=== PATIENT | female | born 1970 | race Caucasian/White ===

== ENCOUNTER 2019-04-19 10:42 | Outpatient (CLI) | payer BC, SELFPAY ==
--- NOTE | 2019-04-19 10:40 | DI.RAD_ITS ---
SYMPTOMS/DIAGNOSIS: KNEE PAIN RIGHT KNEE: Three views were obtained. There may be slight lateral patellar subluxation. There is an apparent accessory ossicle at the lateral aspect of the patella. Minimal marginal osteophyte formation noted at the medial tibiofemoral joint. No other significant bony abnormality seen.
== END 2019-04-19 11:02 ==
PROVIDERS: PCP Family Medicine; Visit Provider Student in an Organized Health Care Education/Training Program
DX: M25.561 Pain in right knee (principal); S89.91XA Unspecified injury of right lower leg, initial encounter
CPT/HCPCS: 73560

== ENCOUNTER 2019-04-26 00:52 | Outpatient (CLI) | payer BC, SELFPAY ==
--- NOTE | 2019-04-26 08:01 | DI.MRI_ITS ---
SYMPTOM/DIAGNOSIS: RT PATELLA OSTEOPHYTE/FX, M22.92, DISORDER OF PATELLA RIGHT KNEE MRI: Axial T 2 fat sat, coronal proton density, coronal T 2 fat sat, sagittal T 2 fat sat, sagittal proton density and sagittal proton density thin ACL pulse sequences were performed. The extensor mechanism of the knee is intact. A small joint effusion is demonstrated. There is no evidence of a meniscal or cruciate tear. The patella appears intact with note made of a small lateral patellar ossicle. There is nothing to suggest a fracture. The patellar cartilage is intact. The medial and lateral patellar retinaculum and medial and lateral collateral ligaments of the knee appear intact. SUMMARY: Question small joint effusion. No evidence of an internal derangement. No evidence of a patellar fracture.
== END 2019-04-26 01:12 ==
PROVIDERS: PCP Family Medicine; Visit Provider Student in an Organized Health Care Education/Training Program
DX: M22.91 Unspecified disorder of patella, right knee (principal); M25.461 Effusion, right knee
CPT/HCPCS: 73721

== ENCOUNTER 2019-05-16 08:26 | Day surgery (SDC) | payer BC, SELFPAY ==
[2019-05-16 08:52] VITALS: BP 113/70; PULSE 70; RESP 16; TEMP 36.3; O2SAT 100
[2019-05-16] MEDS: Lactated Ringers 1,000 ML 80 ML IV (09:17)
[2019-05-16] MEDS: ceFAZolin 2 GM/50 ML BAG IVPB (09:43)
[2019-05-16] MEDS: Bupivacaine LIPOSOME/PF 133 MG/10 ML VIAL IJ (10:09)
[2019-05-16] MEDS: Bupivacaine 0.5% Pres-Free 30 ML VIAL (10:09)
[2019-05-16 10:24] VITALS: BP 112/78; PULSE 74; RESP 14; TEMP 36.6; O2SAT 97
[2019-05-16 10:29] VITALS: BP 129/82; PULSE 71; RESP 15; TEMP 36.6; O2SAT 100
--- NOTE | 2019-05-16 10:29 | W.PM.DSUDISC ---
Discharge Plan Disposition Patient Disposition: HOME Condition: Good Discharge Details Reason For Visit: R Patella Avulsion Fracture Attending Provider: Rajeev Ji Primary Care Provider: Fátima Srivastava Home Meds and New Rx's Prescriptions: New hydrocodone-acetaminophen 5-325 mg tablet 1 tab PO Q4H PRN (Reason: pain) Qty: 8 RF: 0 acetaminophen 500 mg tablet 500 mg PO Q6H PRN PRN (Reason: pain) Qty: 60 RF: 3 ibuprofen 600 mg tablet 600 mg PO TID PRNQty: 60 RF: 3 Discharge Instructions Additional Instructions: Activity: You may begin moving as soon as possible. You may work on flexion but do NOT force it nor try to squat or kneel. You may bear weight as tolerated, using crutches only for support/comfort. You should apply ice (CryoCuff) to help with swelling and elevate when possible (especially in the first few days). Dressings: The knee wrap may come down after 48 hours. You may shower and get the wound wet at that time. The surgical dressing may stay in place for at least one week but just avoid getting the dressing soaked. No dressing needed after 1 week. Medications: - Rarely does this require any stronger pain medications. - Recommend to take up to 1000mg of Acetaminophen (Tylenol) and 600mg of Ibuprofen (Advil) every 8 hours as needed. - Hydrocodone was called in for breakthrough pain Follow-up: 7-10 days Referrals: Rajeev Ji MD [ [facility] STAFF PHYSICIAN] - Equipment/Supplies: Partial Weight Bearing Crutches Activity:: Elevate Remove Dressings/Wound Care:: 48 hours Shower/Bathe:: 48 hours Diet:: As Tolerated Discharge Orders Discharge Orders: Discharge Order (Routine); Ordered 05/16/19 Ordered By: Rajeev Ji DS: Diagnosis Discharge Diagnosis (1) Disorder of right patella: Status: Acute
[2019-05-16 10:34] VITALS: BP 118/95; PULSE 68; RESP 14; TEMP 36.6; O2SAT 100
[2019-05-16 10:50] VITALS: BP 132/77; PULSE 74; RESP 18; TEMP 36.6; O2SAT 100
[2019-05-16 11:31] VITALS: BP 110/78; PULSE 67; RESP 16; TEMP 36.2; O2SAT 97
--- NOTE | 2019-05-16 21:47 | ROE_ITS ---
Date of service: 05/16/19 Time of Service: 12:47 Operative Note DATE OF PROCEDURE: 05/16/19 PRE-OP DIAGNOSIS: Right patella avulsion fracture POST-OP DIAGNOSIS: same PROCEDURE: Excision of patellar fracture fragment, right knee SURGEON: Rajeev Ji ANESTHESIA: GETA ESTIMATED BLOOD LOSS: 5 PATHOLOGY: none sent COMPLICATIONS: None Patient was transported to: PACU Patient's condition: stable Indications: Margie is a 48-year-old who suffered a direct blow to the right knee. Her initial pain improved to the point. However, she continued to have pain with direct pressure over the superior lateral aspect of the patella and with kneeling, squatting, and loaded flexion. X-ray showed a ossicle or bony avulsion from the superolateral patella. MRI revealed that this was hyperintense on T2 suggesting actively moving or being irritated. Given these findings and her clinical examination I offered excision of this loose fragment with repair of the lateral retinaculum. I discussed the risk of the procedure to include bleeding, infection, pain, stiffness, recurrence, weakness. Despite these risks, she elected to proceed. Findings: Immediately adjacent to the superior lateral aspect patella was a bony fragment which was loose and mobile embedded in the soft tissue of the lateral retinaculum in the very distal aspect of the vastus lateralis. It was removed and the lateral soft tissues were repaired Procedure Description: Margie was greeted in the preoperative holding area. Her identity was confirmed the correct site was identified and marked. The consent was reviewed with the patient and signed. The history and physical was updated. Margie was taken back to the operating room placed in the supine position. All bony problems well-padded. A general anesthetic was administered. The right leg was then prepped with ChloraPrep and draped in a standard fashion. Prophylactic antibiotics in the form of cefazolin were given. A timeout was performed for safe surgery. The bony prominence was marked on the skin prior to entering the operating room. An incision centered over this but slightly more midline was drawn onto the skin. The skin, deep tissues, and periosteum were injected with a mixture of 0.5% bupivacaine and Exparel. The skin was incised sharply. This was taken down to the skin and subcutaneous fat. The prepatellar bursa was encountered and this plane was used for dissection. There is no notable bursitis. The extensor mechanism was evaluated in the dorsal surface of the patella was seen. The prominence was palpable. There was no defect seen in the soft tissues. A small incision was made off the lateral border of the patella into the retinacul um. This was extended proximally distally until the prominence was encountered. There was a spicule which was more attached to the patella. Using a [place], I was able to probe this area and just proximal to it there was a loose piece of bone which was mobile. The spicule was removed with a running drawer. The loose piece was also dissected out of the lateral soft tissues. It appeared to be attached to lateral retinaculum as well as the very distal aspect the vastus lateralis. This was removed, measuring approximately 5 mm in length and 3 mm in width and depth. This wound was then thoroughly irrigated. There is no apparent joint violation. The distal fibers of the vastus lateralis and the lateral retinaculum were closed with a #1 suture. The wound was thoroughly irrigated. The deep structures were once again injected with a mixture of 0.5% bupivacaine and Exparel. The skin was then closed with a 2-0 Vicryl followed by 4-0 Monocryl and skin glue. A Mepilex silver dressing was applied and she was placed into an Kem wrap. The tourniquet was not used for the case. The be tolerated the procedure well.
== END 2019-05-16 12:42 | disposition home or self-care (01) ==
PROVIDERS: PCP Nurse Practitioner; Visit Provider Student in an Organized Health Care Education/Training Program
PROC: (CPT 20525; principal; 2019-05-16 08:15)
DX: S82.091A Other fracture of right patella, initial encounter for closed fracture (principal); W22.8XXA Striking against or struck by other objects, initial encounter; M76.891 Other specified enthesopathies of right lower limb, excluding foot; M25.561 Pain in right knee
CPT/HCPCS: 20525; 81025; E0114; J0690; J1100; J1885; J2405

== ENCOUNTER 2020-07-16 11:03 | Outpatient (CLI) | payer SELFPAY ==
--- NOTE | 2020-07-16 | DI.US_ITS ---
EXAM: US SOFT TISS ABD WALL/LOW BACK CLINICAL HISTORY: CYST VS LIPOMA VS OTHER, L72.9. TECHNIQUE: Ultrasound was performed using standard protocol. COMPARISON: No exams were available for comparison FINDINGS: Sonographic assessment utilizing grayscale and color Doppler imaging was performed and targeted to th e area of clinical concern. There is a 3.4 x 1.9 x 0.7 cm solid mass in the subcutaneous tissues of the right lower back. This c orresponds to the palpable abnormality. It is isoechoic to the surrounding fat. IMPRESSION: 3.4 x 1.9 x 0.9 cm solid mass in the right lower back corresponding to the palpable abnormality. It is isoechoic to the surrounding fat. 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 Other soft tissue masses cannot be excluded. DATA REPOSITORY:
== END 2020-07-16 11:23 ==
PROVIDERS: PCP Nurse Practitioner; Visit Provider Nurse Practitioner
DX: R22.2 Localized swelling, mass and lump, trunk (principal)
CPT/HCPCS: 76705

== ENCOUNTER 2021-04-09 18:23 | Outpatient (CLI) | payer BC, SELFPAY ==
--- NOTE | 2021-04-09 09:30 | DI.RAD_ITS ---
Exam(s) XR HIP RT AP LAT ONLY EXAM: XR HIP RT AP LAT ONLY CLINICAL HISTORY: Right hip and buttock pain, tendinitis involving rt hip abductors, M76.891. TECHNIQUE: 2D digital imaging was performed. COMPARISON: No exams were available for comparison FINDINGS: There is no evidence of fracture or dislocation. No abnormal soft tissue calcifications. No obvious degenerative changes in the right hip joint. Bone density is normal. IMPRESSION: No significant radiographic findings. DATA REPOSITORY: RADIATION DOSE DELIVERED:
== END 2021-04-09 18:43 ==
PROVIDERS: PCP Nurse Practitioner; Visit Provider Student in an Organized Health Care Education/Training Program
DX: M76.9 Unspecified enthesopathy, lower limb, excluding foot (principal); M79.10 Myalgia, unspecified site
CPT/HCPCS: 73502

== ENCOUNTER 2021-04-18 04:22 | Outpatient (CLI) | payer BC, SELFPAY ==
--- NOTE | 2021-04-18 07:15 | DI.MRI_ITS ---
Exam(s) MR LOWER JOINT RT WO EXAM: MR LOWER JOINT RT WO CLINICAL HISTORY: R hip pain/weakness, ?abductor tear,TENDINITIS RT HIP ABDUCTORS,M76.891. TECHNIQUE: Multiplanar multisequence MRI Examination was performed. CONTRAST MATERIAL: Noncontrast COMPARISON: Plain films 09 April 2021 FINDINGS: BONES/JOINTS: No evidence of fracture. No evidence of bone lesion. No joint space narrowing identifie d. No joint effusion identified. Facet joint degenerative changes greater on the left at L4-5, see c ausing some neural foraminal encroachment as well as central canal encroachment. This is not fully i ncluded on the exam. LIGAMENTS: The medial and lateral collateral ligaments are intact. MUSCULOTENDINOUS STRUCTURES: Normal muscle signal. Questionable edema in the right gluteus medius te ndon of the is appears roughly symmetric with the opposite side.. SOFT TISSUES: Unremarkable. OTHER FINDINGS: Enlarged, retroverted uterus with right-sided fibroid measuring 3.4 cm. Heterogeneou s myometrium. Endometrium homogeneous. Ovaries unremarkable. Bladder appears normal. IMPRESSION: Question right gluteus medius tendinitis. DATA REPOSITORY:
== END 2021-04-18 04:42 ==
PROVIDERS: PCP Nurse Practitioner; Visit Provider Student in an Organized Health Care Education/Training Program
DX: M76.891 Other specified enthesopathies of right lower limb, excluding foot (principal); R53.1 Weakness
CPT/HCPCS: 73721

== ENCOUNTER 2021-05-15 15:41 | Outpatient (REF) | payer BC, SELFPAY ==
--- NOTE | 2021-05-15 15:15 | PAPFT_PTH ---
PATIENT: Margie Rodriguez LOC: [facility] U#:[id number] AGE/SX: 50/F ROOM: RE05/15/[address]: Nina Osei MD : 1970 BED: DIS: 05/15/2021 SPEC #: [id number] RECD: 05/15/21 18:25 STATUS: OSMIN REMiguel Angel #: [id number] CELESTINO: 05/15/21 15:[address]: Nina Osei DEPT: [facility] Cytology RECD BY: Grace Fuller ENTERED: 05/15/21 18:25 SP TYPE: PAPFT OTHR DR: Jaye Ayala Tissues: 1 - CX/ENDOCX FOR PAP SMEARS Procedures: PAP THIN PREP/UVM Screening HPV DNA PROBE Comments: [id number]
== END 2021-05-15 15:42 | disposition home or self-care (01) ==
LOC: LBN 15:41
PROVIDERS: PCP Nurse Practitioner; Visit Provider Obstetrics & Gynecology
DX: Z12.4 Encounter for screening for malignant neoplasm of cervix (principal); Z11.51 Encounter for screening for human papillomavirus (HPV)
CPT/HCPCS: 88142; 87624

== ENCOUNTER 2021-10-13 01:08 | Outpatient (CLI) | payer BC, SELFPAY ==
--- NOTE | 2021-10-13 | DI.MRI_ITS ---
Exam(s) MR LUMBAR SPINE WO EXAM: MR LUMBAR SPINE WO CLINICAL HISTORY: WORSENING BACK PAIN, M54.9. TECHNIQUE: Multiplanar multisequence MRI of the Lumbar spine was performed. COMPARISON: CR XR HIP RT AP LAT ONLY from 04/09/2021 FINDINGS: Bones: The last intervertebral disc space is designated the L5/S1 level for the numbering purpose of this examination. The vertebral body heights are well maintained. Alignment is satisfactory. The ma rrow signal characteristics are unremarkable. Cord: The conus tip ends at the T12 level. It is of normal size and signal intensity. T12-L1: No disc herniations or bulges are present. No central spinal canal or neural foraminal stenos is. L1-2: No disc herniations or bulges are present. No central spinal canal or neural foraminal stenosis . L2-3: No disc herniations or bulges are present. No central spinal canal or neural foraminal stenosis . L3-4: No disc herniations or bulges are present. No central spinal canal or neural foraminal stenosis . L4-5: No disc herniations or bulges are present. Facet degenerative changes and ligamentous hypertro phy. Small right-sided facet joint cysts project into the central canal. The findings cause moderat e central canal stenosis. Mild right neural foraminal narrowing. L5-S1: Mild bulging of the disc. Mild facet degenerative changes. No central spinal canal or neural foraminal stenosis. Soft tissues: The visualized SI joints and sacrum are well maintained. The paraspinal soft tissues ar e unremarkable. IMPRESSION: Moderate central canal stenosis at L4-5 secondary to combination of facet degenerative changes, ligam entous hypertrophy and small right-sided facet joint cysts. No disc herniation. DATA REPOSITORY:
== END 2021-10-13 01:28 ==
PROVIDERS: PCP Nurse Practitioner; Visit Provider Nurse Practitioner
DX: M54.9 Dorsalgia, unspecified (principal); M48.062 Spinal stenosis, lumbar region with neurogenic claudication
CPT/HCPCS: 72148

== ENCOUNTER 2022-05-06 13:20 | Outpatient (CLI) | payer BC, SELFPAY ==
--- NOTE | 2022-05-06 06:00 | DI.RAD_ITS ---
Exam(s) XR PAIN CLINIC SACRIOILIAC 2V EXAM: XR PAIN CLINIC SACRIOILIAC 2V CLINICAL HISTORY: Dx: Sacroiliac Joint Dysfunction TECHNIQUE: 2D and realtime digital imaging was performed. Radiologist not present. CONTRAST MATERIAL: None. COMPARISON: No exams were available for comparison FINDINGS: Fluoroscopy was provided for pain management therapy. Please refer to procedure report or details. Cumulative dose: Ka,r=3.83 mGy IMPRESSION: RADIATION DOSE DELIVERED:
[2022-05-06 13:24] VITALS: BP 112/80; PULSE 93; RESP 20; TEMP 36.7; O2SAT 95
[2022-05-06 13:53] VITALS: BP 114/72; PULSE 70; RESP 20; O2SAT 95
[2022-05-06 13:56] VITALS: BP 119/72; PULSE 67; O2SAT 97
[2022-05-06] MEDS: Omnipaque 240 MG/ML 50 ML BTL IJ (14:03)
[2022-05-06] MEDS: methylPREDNISolone ACETATE 80 MG/ML VIAL IJ (14:03)
[2022-05-06 14:05] VITALS: BP 127/82; PULSE 78; O2SAT 100
--- NOTE | 2022-05-06 14:42 | PDOC.PAIN_ITS ---
Pain Clinic Procedure Note Procedure Note Procedure Note: INTRA-ARTICULAR SI JOINT INJECTION Margie Rodriguez has been referred to the [facility] Management [facility] for intra-articular SI joint injection. COMMENTS: She was evaluated by [facility] and referred here for this procedure. She has pain directly over the right sacroiliac joint and has had this for 5 years since having a fall on this area. Dx: Right sacroiliac joint dysfunction Pre-procedure pain VAS = 3/10. Patient was interviewed and the medical record reviewed. There were no medical, pharmacologic, radiographic or other structural contraindications to attempting fluoroscopically guided intra-articular SI joint injection. Risks and expected side effects as well as potential benefit of the procedure were reviewed and voiced concerns addressed. The printed consent form was signed and witnessed. Standard time-out procedure was performed. Patient was placed in the prone position on the fluoroscopy table and automated blood pressure cuff and pulse oximeter applied. The skin entry point for approaching the right SI joint was identified under the most advantageous fluoroscopic view and marked. Following thorough Chlorhexadine preparation of the skin and draping and 1% lidocaine infiltration of the skin entry point and subcutaneous tissues, a 22 gauge spinal needle was placed under fluoroscopic guidance into the right SI joint was identified under the most advantageous fluoroscopic view and marked. Intra-articular placement was confirmed by a clear arthrogram resulting from the injection of 0.25ml Omnipaque 240, 1ml 1% lidocaine, and 40mg Depomedrol were injected intra-articularily with an initial reproduction of a significant component of the usual pain. Vital signs were stable throughout the procedure and were as recorded in the docflowsheet by the nursing staff. If given, dosages of intravenous drugs for anxiolysis and analgesia were documented in MAR. Follow up plans and appointments were discussed with the patient. Post procedure instruction was given as documented in nursing documentation and having met discharge criteria, and was discharged from the Pain Management Center. COMMENTS: Post-procedure pain VAS = 0/10 Nik Castillo DO, MPH [facility]-Pain Management [facility] for [facility] CC: Corbin Dupont
== END 2022-05-06 13:21 | disposition home or self-care (01) ==
PROVIDERS: PCP Physician Assistant; Visit Provider Preventive Medicine Occupational Medicine
DX: M54.50 Low back pain, unspecified (principal); M53.3 Sacrococcygeal disorders, not elsewhere classified
CPT/HCPCS: 27096; 72200; J1040; Q9967

== ENCOUNTER → 2023-08-05 00:13 | Outpatient (CLI) | payer BC, SELFPAY ==
--- NOTE | 2023-08-05 | DI.MAMMO_ITS ---
Exam(s) MAMMO SCREENING EXAM: MAMMO SCREENING CLINICAL HISTORY: SCREENING FOR BREAST CANCER Z12.39 TECHNIQUE: Bilateral full field digital CC and MLO mammographic images were obtained with 3D tomosyn thesis and utilizing computer aided detection (CAD). COMPARISON: Available for comparison. FINDINGS: Masses/Architectural Distortion: None seen. Microcalcifications: No suspicious pleomorphic-type are seen. Skin Thickening/Nipple Retraction: None. IMPRESSION: 1. No significant interval change with no specific features of malignancy noted. 2. Unless there is more urgent need, screening mammography is recommended, as per [employer] guidelines. BI-RADS Category 1 - Negative Breast Density - Category B - Scattered areas of fibroglandular density Breast density category C or D implies that the patient has dense breast tissue. Dense breast tissue is very common and is not abnormal but dense breast tissue can make it harder to find cancer on a ma mmogram. Also, dense breast tissue may increase their breast cancer risk. This information about the result of the mammogram report was provided to the patient to raise their awareness. Use this report when you speak with the patient about their risks for breast cancer, which includes their family hist ory. At that time, you may recommend for more screening tests (Ultrasound or MRI) as they might be us eful based on their risk. A negative radiographic report should not delay biopsy if a dominant or clinically suspicious mass is present. Up to ten percent of cancers are not identified on mammography. A negative report may reinforce clinical impression. Adenosis and dense breasts may obscure an underlying neoplasm. False positive reports average 6 to 10%. Patient will receive a letter notifying them of these results.
== END ==
PROVIDERS: PCP Physician Assistant; Visit Provider Physician Assistant
DX: Z12.31 Encounter for screening mammogram for malignant neoplasm of breast (principal)
CPT/HCPCS: 77063; 77067

== ENCOUNTER 2023-10-22 08:08 | Day surgery (SDC) | payer BC, SELFPAY ==
--- NOTE | 2023-10-21 16:20 | PDOC.DSDIS_ITS ---
Date of service: 10/22/23 Time of Service: 09:59 Discharge Plan Disposition Patient Disposition: Home Condition: Good Discharge Details Reason For Visit: Colon cancer screening Attending Provider: Cherry Rogers Primary Care Provider: Corbin Dupont Home Meds and New Rx's Prescriptions: Continued ibuprofen 200 mg Tablet 400 mg PO PRN PRN Zyrtec 10 mg capsule 10 mg PO DAILY PRN Discontinued bisacodyl [Dulcolax (bisacodyl)] 5 mg tablet,delayed release (DR/EC) 5 mg PO ONCE Qty: 4 0RF Rx Instructions: Colonoscopy Bowel Prep- Per Instructions polyethylene glycol 3350 17 gram/dose powder 238 g PO ONCE Qty: 238 0RF Rx Instructions: Colonoscopy Bowel Prep- Per Instructions Discharge Instructions Additional Instructions: DSU Colonoscopy Post- Op Instructions Instructions for Everyone who is given Anesthesia: For your safety, please do the following for the next twenty-four (24) hours: *Do Not operate a motor vehicle (car, truck, motorcycle, etc.) *Do Not drink alcoholic beverages or use any recreational drugs for the first 24 hours or while taking pain medications. The medications in your body may have a reaction that can be dangerous. *Do Not make any important decisions or sign any important papers. Findings: diverticula-make sure you are moving your bowels on a regular basis and not straining. If you have problems with chronic constipation or straining it is recommended you start a fiber product such as Metamucil. Follow up: 10 yrs time Of course, you should continue to have a yearly physical exam including a rectal exam. If you should ever notice any pain or difficulty having a bowel movement, blood in the stool, unexplained weight loss, or change in your bowel habits, please contact your healthcare provider 1. No lifting over 20 pounds or strenuous activity for the first 24 hours after your procedure. After 24 hours there are no restrictions on your activity but you may feel fatigued for a few days. 2. After you arrive home you may have a light meal and return to your normal diet as you can tolerate it without feeling sick to your stomach. 3. You may have a bloated, gaseous feeling in your belly (abdomen) after a colonoscopy. Passing gas and belching will help. Walking or lying down on your left side with your knees flexed may relieve the discomfort. Call the office at [phone] (Office) or [phone] (Hospital) right away if you notice any of the following: a.Vomiting of blood or ?coffee ground stools?. b.Rectal bleeding 1Tbsp, blood clots or continuous bleeding. c.Severe belly (abdominal) pain. d.A hard distended belly (abdomen) and an inability to pass gas. 4. Please don?t expect to have a normal BM (bowel movement) for 2-3 days after your procedure. 5. If there are questions regarding the findings of your procedure, please contact your doctor 6. If you are unable to contact your doctor with a problem, contact the hospital at [phone]. 7. Continue all your regular medications unless directed otherwise. I understand the above instructions and have no questions. Signature of Patient or Adult Escort Name of Responsible Adult Escort Signature of Nurse Date/Time Activity:: See above Diet:: See above Discharge Orders Discharge Orders: Discharge Order (Routine); Ordered 10/22/23 Ordered By: Cherry Rogers DS: Diagnosis Discharge Diagnosis (1) Screening for malignant neoplasm of colon performed: Status: Acute Asessment and Plan: The patient is seen and examined after their colonoscopy.? The patient has been able to pass gas.? They are not having abdominal pain.? They have been able to tolerate liquids and a snack.? They do not have any nausea or vomiting.? They are not having any chest pain or shortness of breath.??? They are not having any rectal bleeding. Their vital signs have been stable-see nursing notes. We discussed findings during their colonoscopy, and any biopsies that were done/polyps that were removed. The patient will be sent a letter with any biopsy results, and when to repeat the colonoscopy.-see discharge instructions. Patient was given explicit instructions to follow-up regarding colonoscopy-refer to discharge instructions.? We reviewed resumption of medications.Patient verbalized understanding and discharged in stable and satisfactory condition- See nursing notes (2) Diverticula of colon: Status: Acute
--- NOTE | 2023-10-21 16:20 | W.COLOREPORT ---
Date of service: 10/22/23 Time of Service: 10:01 Colonoscopy Report Date of procedure: 10/22/23 Pre-op diagnosis general: Colorectal cancer screening Post-op diagnosis procedure note: other (Minor diverticular disease) Surgeon: Cherry Rogers Anesthesia Type: General:No Airway Estimated blood loss (mL): 0 Pathology: none sent Complications: None Disposition: same day Prep: Miralax/Dulcolax Retraction Time: 9 Procedure Description: After informed consent was obtained the patient was taken to the procedure room and placed in a left decubitous position. Monitors were applied and a time out was done. The patients name, date of , procedure, allergies to medications and metal in their body was reviewed. The patient was then sedated. Once sedated and comfortable a rectal exam was done. External exam was normal. Internal exam revealed a normal sphincter tone and no palpable masses. The scope was then introduced and retrofelexed. No internal hemorrhoids were identified. The scope was then advanced to the cecum without patient difficulty. The TI and appendiceal orifice were identified. The prep was BBPS 3 in all segments for a total of 9. The scope was then slowly retracted over 9 minutes back into the rectum. There are no polyps or AVMs visualized today. She has a few small scattered diverticula confined to the sigmoid colon. There is no signs of active bleeding or infection. The mucosa is pink and healthy with a normal vascular pattern the scope was removed and the patient was woken up and taken back to Same day surgery in stable condition. The patient tolerated the procedure well and there were no immediate complications. Follow up: The patient should follow up in 10 years unless they develop changes in bowel habits or other new gastrointestinal complaints.
[2023-10-22 08:30] VITALS: BP 127/84; PULSE 77; RESP 16; TEMP 36.2; O2SAT 96
[2023-10-22] MEDS: Lactated Ringers 1,000 ML 80 ML IV (08:39)
--- NOTE | 2023-10-22 09:07 | W.ANESPRE ---
General Info Date of Service Date Performed: 10/22/23 Height: 5 ft 3 in Weight: 64.6 kg Body Mass Index (BMI): 25.2 Surgical Procedure: Operation Date: 10/22/23 09:20 Proposed Procedure Side Surgeon tracy Rogers, Meds Allergies and Home Medications Allergies Allergy/AdvReac Type Severity Reaction Status Date / Time No Known Allergies Allergy Verified 10/22/23 08:44 Home Medication Medication Instructions Recorded ibuprofen 200 mg tablet 400 mg PO PRN PRN 01/06/22 cetirizine 10 mg capsule (Zyrtec) 10 mg PO DAILY PRN 05/20/23 Current Visit Medications: Current Medications Generic Name Dose Route Start Last Admin Trade Name Freq PRN Reason Stop Dose Admin Hyoscyamine Sulfate 0.125 mg 10/22/23 04:18 Hyoscyamine 0.125 Mg Sl/Oral/Chew SL 11/21/23 04:17 DIRECTED PRN Ringer's Solution 1,000 mls @ 80 mls/hr 10/22/23 06:00 10/22/23 08:39 IV 10/22/23 23:59 80 mls/hr INFUSION ADINA Administration IV Miscellaneous Supplies 1 each 10/22/23 06:00 Iv Access IV 10/22/23 23:59 DIRECTED ADINA Ondansetron HCl 4 mg 10/22/23 04:18 Ondansetron 4 Mg/2 Ml Vial IVP 11/21/23 04:17 Q4H PRN PRN Nausea / Vomiting Sodium Chloride 0 ml 10/22/23 06:00 Normal Saline Flush 10 Ml Syr IV 10/22/23 23:59 PRN PRN Sodium Chloride 0 ml 10/22/23 06:00 Normal Saline 10 Ml Vial IJ 10/22/23 23:59 DIRECTED PRN Sterile Water 0 ml 10/22/23 06:00 Water,Injection,Sterile 10 Ml Vial IJ 10/22/23 23:59 DIRECTED PRN PFSH Active Problems Active Problems: Problem Status Onset Code Screening for malignant neoplasm of colon performed Z12.11 Fibroid D21.9 Psoas tendinitis of right side M76.11 Tendinitis involving right hip abductors M76.891 Disorder of right patella M22.91 Medical History Medical History Sacroiliac joint dysfunction Synovial cyst DDD (degenerative disc disease), lumbar Compound nevus Tinnitus Ear pain, right Knee pain, right Cyst Back pain Piriformis syndrome Low back pain Surgical History Surgical History H/O right knee surgery [place] teeth extracted Tobacco Smoking/Tobacco Use Status: Never Alcohol Alcohol Intake: current Alcohol intake frequency: a few times a week Alcohol type: beer and wine Substance Use Substance use: Never Substance use type: does not use Vital Signs and Lab Results Vital Signs Most Recent Vital Signs in EMR: Most Recent Vital Signs Temp Pulse Resp BP Pulse Ox 36.2 C L 77 16 127/84 96 10/22/23 08:30 10/22/23 08:30 10/22/23 08:30 10/22/23 08:30 10/22/23 08:30 Point of Care Results Point of Care Results: POC- Test(urine) Negative 10/22/23 08:48 Lab Results Blood Type / Crossmatch: No Data to Display Complete Blood Count: No Data to Display Complete Metabolic Panel: No Data to Display Liver Function Panel: No Data to Display Coagulation Panel: No Data to Display Cardiac Panel: No Data to Display Arterial Blood Gas: No Data to Display Venous Blood Gas: No Data to Display Pancreas Panel: No Data to Display Thyroid Panel: No Data to Display Infectious Disease: No Data to Display Blood Cultures: No Data to Display Toxicology Panel: No Data to Display Panel: No Data to Display Anesthesia Assessment and Plan Anesthesia History Personal History: No History of Anesthesia Complications Family History: No Family History of Anesthesia Complications Exercise Tolerance Exercise Tolerance: Metabolic Equivalents>4 Pertinent Negatives Pertinent Negatives: No Symptoms of GERD Cardiac & Pulmonary Exam Cardiac Exam: Normal S1/S2 Heart Sounds Pulmonary Exam: Clear Bilateral Breath Sounds Implantable Cardiac Device Does patient have a Pacemaker or an ICD?: No Airway Exam Known Difficult Airway: No Mallampati Class: 2 Mouth Opening: Normal (> 3cm) Thyromental Distance: Greater than 3 cm Neck Range of Motion: Full ROM Neck Circumference: Normal Teeth Condition: Normal Dentition ASA Classification ASA Score: ASA 2 Emergency Case?: No NPO Status NPO Status: NPO Clears >2 hours, Solids >8 hours Status Status: Not Relevant due to Medical History Anesthesia Plan Resuscitation Status: Full Code Anesthesia Technique: General Anesthesia Airway Planned: Natural Airway Monitors Used: Standard Monitors
[2023-10-22 09:08] VITALS: BMI 25.2
[2023-10-22 09:50] VITALS: BP 100/71; PULSE 75; RESP 18; TEMP 36.4; O2SAT 98
--- NOTE | 2023-10-22 10:07 | W.ANESPOSTOP ---
Postoperative Evaluation Date, Time and Location Date Performed: 10/22/23 Time Performed: 10:07 Patient Location: Day Surgery Unit Vital Signs Most Recent Imported Vital Signs: Most Recent Vital Signs Temp Pulse Resp BP Pulse Ox 36.4 C L 75 18 100/71 98 10/22/23 09:50 10/22/23 09:50 10/22/23 09:50 10/22/23 09:50 10/22/23 09:50 Pain Score Most Recent Pain Score: Most Recent Pain Score Pain Level 0 10/22/23 09:50 Assessment Mental Status: Awake (Alert & Oriented to Patient Baseline) Airway and Respiratory Function: Patent airway with normal (patient baseline) respiratory exam Cardiovascular Function: Hemodynamically Stable Hydration Status: Adequately Hydrated Nausea & Vomiting: No Nausea or Vomiting Pain: Pt. Denies Any Pain Peripheral Nerve Block: Patient did not receive a nerve block
[2023-10-22 10:19] VITALS: BP 92/72; PULSE 72; RESP 18; TEMP 36.5; O2SAT 98
== END 2023-10-22 10:45 | disposition home or self-care (01) ==
LOC: SUR 08:09
PROVIDERS: PCP Physician Assistant; Visit Provider Surgery
PROC: 0DJD8ZZ Inspection of Lower Intestinal Tract, Via Natural or Artificial Opening Endoscopic (ICD-10-PCS; CPT 45378; principal; 2023-10-22 09:15)
DX: Z12.11 Encounter for screening for malignant neoplasm of colon (principal); K57.30 Diverticulosis of large intestine without perforation or abscess without bleeding
CPT/HCPCS: 45378; 81025; J2001

== ENCOUNTER 2023-11-29 11:23 | Outpatient (REF) | payer BC, SELFPAY ==
[2023-11-29 15:58] LABS: HCT 42.5 % (36.0-46.0); HGB 14.1 g/dL (11.2-15.7); MCH 29.6 pg (27.0-33.0); MCHC 33.2 % (32.0-36.0); MCV 89 fL (80-95); MPV 11.8 fL (8.0-11.0); Platelet Count 222 10^3/uL (130-400); RBC 4.77 10^6/uL (3.93-5.22); RDW 12.6 % (11.7-14.6); RDW-SD 41.6 fL; WBC 4.51 10^3/uL (4.4-10.8)
[2023-11-29 16:21] LABS: Anion Gap 5.3 mmol/L (3-11); BUN 10 mg/dL (7-18); CO2 30.7 mmol/L (21.0-32.0); CREATININE 0.8 mg/dL (0.55-1.02); Calcium 9.4 mg/dL (8.5-10.1); Calculated LDL 133 mg/dL (<100); Chloride 105 mmol/L (98-107); Cholesterol 226 mg/dL (<200); Glucose 105 mg/dL (74-106); HDL Cholesterol 83 mg/dL (40-60); Potassium 4.3 mmol/L (3.5-5.1); Sodium 141 mmol/L (136-145); Triglyceride 52 mg/dL (<150)
== END 2023-11-29 11:24 | disposition home or self-care (01) ==
LOC: NCHCN 11:23
PROVIDERS: PCP Physician Assistant; Visit Provider Physician Assistant
DX: Z00.00 Encounter for general adult medical examination without abnormal findings (principal); Z13.220 Encounter for screening for lipoid disorders; Z13.0 Encounter for screening for diseases of the blood and blood-forming organs and certain disorders involving the immune mechanism; Z13.228 Encounter for screening for other metabolic disorders
CPT/HCPCS: 80048; 80061; 85027